=== PATIENT | male | born 1935 | race Caucasian/White ===

== ENCOUNTER 2023-01-08 12:22 | Emergency (ER) | payer OTHER ==
[~2023-01-08] VITALS: Ht 167.6 cm; Wt 65.3 kg
[2023-01-08] MEDS ORDERED: IV NORMAL SALINE 1000 ML BAG IV ONE ×2 (12:30→15:15)
[2023-01-08] MEDS ORDERED: LISI2.5T14 PO (12:37)
[2023-01-08] MEDS ORDERED: ATOR10TA PO (12:37)
[2023-01-08] MEDS ORDERED: ATEN25TA PO (12:37)
[2023-01-08 12:48] LABS: HEMATOCRIT 30.8 % (36.7-47.1); MEAN CORPUSCULAR HEMOGLOBIN 29.3 uug (23.8-33.4); PLATELET COUNT (AUTO) 189 K/uL (152-348)
[2023-01-08 13:14] LABS: CARBON DIOXIDE 27 mmol/L (21-32); CHLORIDE 103 mmol/L (98-107); CREATININE 1.6 mg/dL (0.6-1.3); GLUCOSE 177 mg/dL (74-106); POTASSIUM 3.8 mmol/L (3.5-5.1); UREA NITROGEN, BLOOD 52 mg/dL (7-18)
[2023-01-08 13:22] LABS: ALANINE AMINOTRANSFERASE 36 U/L (16-63); ALKALINE PHOSPHATASE 111 U/L (50-136); ASPARTATE AMINOTRANSFERASE 52 U/L (15-37); BILIRUBIN,DIRECT 0.2 mg/dL (0.0-0.2); BILIRUBIN,TOTAL 0.6 mg/dL (0.2-1.0); TOTAL PROTEIN, SERUM 6.9 g/dL (6.4-8.2)
[2023-01-08] MEDS ORDERED: PIPERACILLIN SODIUM/TAZOBACTAM 3.375 G in IV DEXTROSE 5% 50 ML IV ONE (13:45)
[2023-01-08] MEDS ORDERED: VANCOMYCIN IV 1,000 MG in IV DEXTROSE 5% 250 ML IV ONE (13:45)
[2023-01-08] MEDS ORDERED: VANCOMYCIN IV 200 ML ONE (13:54)
[2023-01-08 19:22] VITALS: BP 111/80
== END 2023-01-08 19:22 | disposition short-term general hospital (02) ==
LOC: ER 12:22
DX: R53.1 Weakness (principal); J18.9 Pneumonia, unspecified organism; N28.9 Disorder of kidney and ureter, unspecified; E86.0 Dehydration; R62.7 Adult failure to thrive; J81.1 Chronic pulmonary edema; E88.09 Other disorders of plasma-protein metabolism, not elsewhere classified; I83.009 Varicose veins of unspecified lower extremity with ulcer of unspecified site; D72.819 Decreased white blood cell count, unspecified; E87.20 Acidosis, unspecified; E11.65 Type 2 diabetes mellitus with hyperglycemia; I10 Essential (primary) hypertension; E78.5 Hyperlipidemia, unspecified; Z86.73 Personal history of transient ischemic attack (TIA), and cerebral infarction without residual deficits; Z79.899 Other long term (current) drug therapy; Z20.822 Contact with and (suspected) exposure to COVID-19
CPT/HCPCS: 36415; 71045; 83605; 84484; 85025; 87040; 93005; A4663; J2543; J3370; J7040